=== PATIENT | male | born 1950 | race Caucasian/White ===

== ENCOUNTER 2016-11-13 01:20 | Emergency (ER) | payer MEDICARE, BC ==
[~2016-11-13] VITALS: Ht 180.3 cm; Wt 79.4 kg
[~2016-11-13 01:20] MED LIST: ACID1TAB4 PO; Acetaminophen PO; BICA50TA6 PO; BISA10SU12 RC; BUDE10.22 INH; CALC-860 PO; CYAN50008 PO; DIVA500T7 PO; DUTA0.5C15 PO; Docusate Sodium PO; FURO-152 PO; MAGN400O6 PO; MAGN400T6 PO; MENT71OI TOP; MULT1TAB11 PO; OXYC40TA50 PO; PANT40TA2 PO; PROT946L PO; RIVA15TA PO; RIVA20TA PO; Zolpidem Tartrate PO
[2016-11-13] MEDS ORDERED: IV NORMAL SALINE 1000 ML BAG IV ONE (01:30)
[2016-11-13] MEDS ORDERED: ONDANSETRON 4 MG/2 ML VIAL IV ONE (01:30)
[2016-11-13] MEDS ORDERED: FAMOTIDINE. 20 MG/2 ML VIAL IV ONE ×2 (01:30→01:50)
--- NOTE | 2016-11-13 01:35 | NUR ---
Pt biba from home for c/o severe abd pain and N/V for three days getting progressively worse. Pt seen by Dr. Carrington, awaiting further orders.
[2016-11-13] MEDS ORDERED: ONDANSETRON 4 MG/2 ML VIAL ONE ×2 (01:49→05:54)
[2016-11-13 01:54] LABS: BASOPHILS % (AUTO) 0.5 % (0.0-2.0); EOSINOPHILS # (AUTO) 0.1 K/uL (0.0-0.7); HEMATOCRIT 49.4 % (40-50); HEMOGLOBIN 16.2 G/DL (14.0-18.0); LYMPHOCYTES # (AUTO) 0.9 K/UL (0.8-4.8); LYMPHOCYTES % (AUTO) 12.3 % (20.5-51.5); MEAN CORPUSCULAR HEMOGLOBIN 30.6 UUG (27.0-31.0); MEAN CORPUSCULAR HGB CONC 33 g/dL (32.0-37.0); MEAN CORPUSCULAR VOLUME 93.2 FL (82.0-92.0); MONOCYTES # (AUTO) 0.5 K/UL (0.1-1.30); MONOCYTES % (AUTO) 6.7 % (0.0-11.0); NEUTROPHILS # (AUTO) 5.5 K/UL (1.8-8.9); NEUTROPHILS % (AUTO) 79.5 % (38.5-71.5); PLATELET COUNT (AUTO) 165 K/UL (150-450)
--- NOTE | 2016-11-13 02:00 | NUR ---
R. Subclavian port accessed with a 22g 3/4" arias needle. Pt medicated for discomfort and N/V, will monitor for effects of medication. Fluid bolus infusing freely to gravity. Pt resting in position of comfort for self.
[2016-11-13 02:05] LABS: CREATININE 0.9 mg/dL (0.6-1.3); POTASSIUM 3.2 mmol/L (3.5-5.1)
[2016-11-13 02:11] LABS: BILIRUBIN,DIRECT 0.1 mg/dL (0.0-0.2); BILIRUBIN,TOTAL 0.5 mg/dL (0.2-1.0); TOTAL PROTEIN, SERUM 7.8 g/dL (6.4-8.2)
--- NOTE | 2016-11-13 02:42 | NUR ---
Pt continues to c/o severe nausea and pain and is requesting more medication. Dr. Carrington notified. Awaiting further orders
[2016-11-13] MEDS ORDERED: METOCLOPRAMIDE HCL 10 MG/2 ML VIAL IV ONE (02:45)
[2016-11-13] MEDS ORDERED: MORPHINE SULFATE 2 MG/1 ML DISP.SYRIN IV ONE (02:45)
[2016-11-13] MEDS ORDERED: ABIR500T PO (02:46)
[2016-11-13] MEDS ORDERED: FLUO-119 PO (02:46)
[2016-11-13] MEDS ORDERED: PANT40TA4 PO (02:46)
[2016-11-13] MEDS ORDERED: TAMS0.4C34 PO (02:46)
[2016-11-13] MEDS ORDERED: ALPR1TAB7 PO (02:46)
[2016-11-13] MEDS ORDERED: GABA-534 PO (02:46)
[2016-11-13] MEDS ORDERED: DIVA500T7 PO (02:46)
[2016-11-13] MEDS ORDERED: PRED2.5T PO (02:46)
[2016-11-13] MEDS ORDERED: PROBIOTIC (02:46)
[2016-11-13] MEDS ORDERED: OXYC30TA2 PO (02:46)
--- NOTE | 2016-11-13 02:56 | NUR ---
Pt medicated for pain and nausea, will monitor for effects of medication. Fluid bolus infusing freely to gravity. Pt repositioned for comfort.
[2016-11-13] MEDS ORDERED: MORPHINE SULFATE 4 MG/1 ML DISP.SYRIN ONE (02:59)
[2016-11-13] MEDS ORDERED: METOCLOPRAMIDE HCL 10 MG/2 ML VIAL ONE (02:59)
[2016-11-13] MEDS ORDERED: CYAN10009 PO (03:02)
[2016-11-13] MEDS ORDERED: L. A1CAP5 PO (03:02)
[2016-11-13] MEDS ORDERED: CALC-903 PO (03:02)
[2016-11-13] MEDS ORDERED: IOHEXOL 300MG/ML 100 ML INFUS..BTL ONE (03:15)
[2016-11-13] MEDS ORDERED: NORMAL SALINE FLUSH 10 ML DISP.SYRIN ONE (03:15)
[2016-11-13] MEDS ORDERED: IV NORMAL SALINE 250 ML IV ONE (03:15)
--- NOTE | 2016-11-13 03:20 | NUR ---
Pt to [place] via [facility]
--- NOTE | 2016-11-13 03:45 | NUR ---
Pt returned from [place] via [facility]. Pt sts nausea has improved but no change in level of burning pain to the abd. Dr. Carrington notified, awaiting further orders.
[2016-11-13] MEDS ORDERED: LIDOCAINE VISCUS 2% 15 ML UDC MM ONE (04:45)
[2016-11-13] MEDS ORDERED: MAG HYDROX/AL HYDROX/SIMETH 30 ML LIQUID UDC PO ONE (04:45)
[2016-11-13] MEDS ORDERED: POTASSIUM CHLORIDE 20 MEQ TAB.PRT.SR PO ONE (05:00)
--- NOTE | 2016-11-13 05:07 | NUR ---
Pt medicated for "burning" abd pain, will monitor for effects of medication. Pt resting in position of comfort for self. Family remains at bedside
[2016-11-13] MEDS ORDERED: MAG HYDROX/AL HYDROX/SIMETH 30 ML LIQUID UDC ONE (05:12)
[2016-11-13] MEDS ORDERED: POTASSIUM CHLORIDE 20 MEQ TAB.PRT.SR ONE (05:12)
[2016-11-13] MEDS ORDERED: LIDOCAINE VISCUS 2% 15 ML UDC ONE (05:12)
--- NOTE | 2016-11-13 05:35 | NUR ---
Pt requesting one more dose of medication for discomfort and nausea prior to discharge
[2016-11-13] MEDS ORDERED: HYDROCODONE/APAP 5-325MG TABLET PO ONE (05:45)
[2016-11-13] MEDS ORDERED: ONDANSETRON IV *ER 4 MG/2 ML VIAL IV ONE (05:45)
[2016-11-13] MEDS ORDERED: HYDROCODONE/APAP 5-325MG TABLET ONE (05:54)
--- NOTE | 2016-11-13 06:10 | NUR ---
Pt sts " Im finally starting to feel better". Pt stable for discharge per Dr. Carrington. Right subclavian port access discontinued, drsg applied. No problems noted to site. Unable to discharge at this time due to lack of ride home. is at bedside however took sleep aid medication last night and appears "groggy". is unable to keep her eyes open, keeps falling asleep and does not appear to be awake and alert enough to drive the pt and herself home. Pt unable to drive due to receiving narcotics earlier. Pt to be discharged when his is alert enough to drive them home or is able to arrange another ride. Dr. Carrington notified.
--- NOTE | 2016-11-13 07:00 | NUR ---
Pt's awake and alert, no longer "groggy". Pt stable for discharge per Dr. Carrington. Pt given [facility]. Pt verbalized understanding of dc instructions. Pt and ambulated out of ER with steady gait.
[2016-11-13 07:17] VITALS: BP 147/94
== END 2016-11-13 07:00 | disposition home or self-care (01) ==
LOC: ER 01:21
DX: E87.6 Hypokalemia (principal); R10.10 Upper abdominal pain, unspecified; R11.2 Nausea with vomiting, unspecified; K80.20 Calculus of gallbladder without cholecystitis without obstruction
CPT/HCPCS: 36415; 70030-TC; 83690; 85025; 85730; 93005; A4663; J2270; J2405; J2765; J3490; J7030; J7050; Q9967

== ENCOUNTER 2023-05-11 11:15 | Inpatient (IN) | payer MEDICARE, BC ==
[~2023-05-11] VITALS: Ht 177.8 cm; Wt 54.4 kg
[~2023-05-11 11:15] MED LIST changes: +ABIR500T PO; -ACID1TAB4 PO; +ALPR1TAB7 PO; -BICA50TA6 PO; -CALC-860 PO; +CALC-903 PO; +CYAN-51 PO; -CYAN50008 PO; +DILT-2 PO; +DIVA-78 PO; -DIVA500T7 PO; -DUTA0.5C15 PO; +DUTA0.5C37 PO; +FLUO10CA29 PO; -FURO-152 PO; +GABA-534 PO; +L. A1CAP5 PO; -MAGN400O6 PO; -MAGN400T6 PO; -OXYC40TA50 PO; -PANT40TA2 PO; +PANT40TA49 PO; +PRED2.5T PO; +PROBIOTIC; -PROT946L PO; -RIVA15TA PO; -RIVA20TA PO; +TAMS0.4C34 PO
[2023-05-11 12:22] LABS: AMMONIA 18 umol/L (11-32); CALCIUM 8.5 mg/dL (8.5-10.1); CARBON DIOXIDE 30 mmol/L (21-32); CHLORIDE 102 mmol/L (98-107); CREATININE 0.6 mg/dL (0.6-1.3); GLUCOSE 122 mg/dL (74-106); SODIUM SERUM 138 mmol/L (136-145); UREA NITROGEN, BLOOD 7 mg/dL (7-18)
[2023-05-11 12:26] LABS: *BLOOD, URINE 2+ (NEGATIVE); *CLARITY,URINE CLEAR (CLEAR); *COLOR,URINE YELLOW (YELLOW); *KETONES,URINE 2+ (NEGATIVE); *PROTEIN,URINE TRACE (NEGATIVE); *UROBILINOGEN,URINE 0.2 E.U./dl (NORMAL); LEUKOCYTE ESTERASE ,URINE NEGATIVE (NEGATIVE); NITRITE, URINE NEGATIVE (NEGATIVE); UGLUCOSE NEGATIVE (NEGATIVE)
[2023-05-11 12:27] LABS: BASOPHILS % (AUTO) 0.2 % (0.0-2.0); DIFFERENTIAL COMMENT 0; EOSINOPHILS % (AUTO) 0.2 % (0.0-7.0); HEMATOCRIT 23.9 % (36.7-47.1); LYMPHOCYTES # (AUTO) 0.6 K/uL (0.8-4.8); LYMPHOCYTES % (AUTO) 15.6 % (20.5-51.5); MEAN CORPUSCULAR HEMOGLOBIN 35.4 uug (23.8-33.4); MEAN CORPUSCULAR HGB CONC 33 g/dL (32.5-36.3); MEAN CORPUSCULAR VOLUME 106.5 fL (73.0-96.2); MONOCYTES # (AUTO) 0.2 K/uL (0.1-1.30); MONOCYTES % (AUTO) 6.4 % (0.0-11.0); NEUTROPHILS # (AUTO) 2.8 K/uL (1.8-8.9); NEUTROPHILS % (AUTO) 77.6 % (38.5-71.5); PLATELET COUNT (AUTO) 205 K/uL (152-348); RED CELL DISTRIBUTION WIDTH 15.5 % (12.1-16.2); WHITE BLOOD COUNT (AUTO) 3.7 K/uL (3.6-10.2)
[2023-05-11 12:29] LABS: RED BLOOD CELL COUNT(AUTO) 2.25 MIL/uL (4.06-5.63)
[2023-05-11 12:30] LABS: ETHANOL < 3 MG/DL (0-10)
[2023-05-11 12:36] LABS: *BILIRUBIN,URIN 1+ (NEGATIVE)
[2023-05-11 12:36] LABS: ALANINE AMINOTRANSFERASE 10 U/L (16-63); ALBUMIN 2.5 g/dL (3.4-5.0); ALKALINE PHOSPHATASE 90 U/L (50-136); ASPARTATE AMINOTRANSFERASE 35 U/L (15-37); BILIRUBIN,TOTAL 0.3 mg/dL (0.2-1.0); TOTAL PROTEIN, SERUM 7.5 g/dL (6.4-8.2)
[2023-05-11 12:40] LABS: ACETAMINOPHEN < 2.0 ug/mL (10-30); BILIRUBIN,DIRECT < 0.1 mg/dL (0.0-0.2)
[2023-05-11 12:58] LABS: *AMPHETAMINE, URINE NEGATIVE (NEGATIVE); *BARBITURATE, URINE NEGATIVE (NEGATIVE); *BENZODIAZEPINE, URINE POSITIVE (NEGATIVE); *CANNABINOID, URINE NEGATIVE (NEGATIVE); *COCCAINE, URINE NEGATIVE (NEGATIVE); *OPIATE, URINE POSITIVE (NEGATIVE); *PHENCYCLIDINE SCREEN,URINE NEGATIVE (NEGATIVE); FENTANYL, URINE NEGATIVE (NEGATIVE)
[2023-05-11 13:07] LABS: THYROID STIMULATING HORMONE 0.663 mIU/mL (0.358-3.740)
[2023-05-11 13:16] LABS: BACTERIA,URINE FEW /HPF (NONE SEEN); RBC,URINE 80-100 /HPF (0-3); SQUAMOUS EPITHELIAL CELL,UR FEW /HPF (NONE SEEN); WBC,URINE NONE SEEN /HPF (0-3)
[2023-05-11] MEDS ORDERED: REMEDY ESSENTIAL ZINC PASTE 113 GM TP PRN (19:45)
[2023-05-11] MEDS ORDERED: MAGNESIUM HYDROXIDE 30 ML LIQUID UDC PO PRN (19:45)
[2023-05-11] MEDS ORDERED: ONDANSETRON 4 MG/2 ML VIAL IV PRN (19:45)
[2023-05-11 20:00] VITALS: BP 129/78; TEMP 98.5; O2SAT 93
[2023-05-11] MEDS: DIVALPROEX 500 MG TABLET.DR PO SCH (21:39)
[2023-05-11] MEDS: predniSONE 5 MG TABLET PO SCH (21:41)
[2023-05-11] MEDS: TAMSULOSIN HCL 0.4 MG CAP.SR.24H PO SCH (21:41)
[2023-05-11] MEDS: IV NS 1000 ML 1,000 ML IV PRN (21:42)
[2023-05-11] MEDS: ENOXAPARIN SODIUM 40 MG/0.4 ML DISP.SYRIN SQ SCH (21:42)
[2023-05-11] MEDS: ACETAMINOPHEN 325 MG TABLET PO PRN (22:51)
[2023-05-12] VITALS (16 sets, daily range): BP systolic 91–111; BP diastolic 58–73; TEMP 97.1–99.3; O2SAT 88–99
[2023-05-12] MEDS: FLUOXETINE HCL 10 MG CAPSULE PO SCH (06:00)
[2023-05-12 07:16] LABS: CALCIUM 8.1 mg/dL (8.5-10.1); CARBON DIOXIDE 29 mmol/L (21-32); CHLORIDE 104 mmol/L (98-107); CHOLESTEROL 101 mg/dL (<200); CREATININE 0.6 mg/dL (0.6-1.3); GLUCOSE 113 mg/dL (74-106); HDL CHOLESTEROL 37 mg/dL (40-60); MAGNESIUM 1.8 mg/dL (1.8-2.4); POTASSIUM 3.9 mmol/L (3.5-5.1); SODIUM SERUM 140 mmol/L (136-145); TRIGLYCERIDES 73 MG/DL (30-150); UREA NITROGEN, BLOOD 10 mg/dL (7-18)
[2023-05-12 07:41] LABS: BASOPHILS % (AUTO) 0.1 % (0.0-2.0); HEMOGLOBIN 7.8 g/dL (12.5-16.3); LYMPHOCYTES % (AUTO) 12.4 % (20.5-51.5); MEAN CORPUSCULAR HEMOGLOBIN 35.9 uug (23.8-33.4); MEAN CORPUSCULAR HGB CONC 34 g/dL (32.5-36.3); MEAN CORPUSCULAR VOLUME 105.5 fL (73.0-96.2); MONOCYTES # (AUTO) 0.4 K/uL (0.1-1.30); MONOCYTES % (AUTO) 5.4 % (0.0-11.0); NEUTROPHILS # (AUTO) 6.6 K/uL (1.8-8.9); NEUTROPHILS % (AUTO) 82.1 % (38.5-71.5); PLATELET COUNT (AUTO) 197 K/uL (152-348); RED CELL DISTRIBUTION WIDTH 15.2 % (12.1-16.2)
[2023-05-12 07:43] LABS: RED BLOOD CELL COUNT(AUTO) 2.18 MIL/uL (4.06-5.63)
[2023-05-12 07:44] LABS: DIFFERENTIAL COMMENT 1
[2023-05-12] MEDS: CALCIUM CARBONATE 600 MG TABLET PO SCH (09:40)
[2023-05-12] MEDS: DILTIAZEM HCL CD 120 MG CAP.SR.24H PO SCH (09:40)
[2023-05-12] MEDS: DUTASTERIDE 0.5 MG CAPSULE PO SCH (09:41)
[2023-05-12] MEDS: DULOXETINE 30 MG CAPSULE.DR PO SCH (09:41)
[2023-05-12] MEDS: ALPRAZOLAM 0.5 MG TABLET PO SCH ×2 (09:41→22:01)
[2023-05-12] MEDS: NEOMY/BACITRAC/POLYMI OINT 28.35 GM TUBE TOP SCH (13:13)
[2023-05-12] MEDS: NALOXONE HCL 0.4 MG/ML AMPUL IV ONE (14:51)
[2023-05-12 14:55] LABS: ABG BASE EXCESS -3.8 mmol/L (-2.0-2.0); ABG HCO3 26.3 mmol/L (22.0-26.0); ABG PCO2 83.5 mmHg (35.0-48.0); ABG PH 7.116 (7.340-7.440); ABG PO2 104.9 mmHg (75.0-100.0); ABG SITE RIGHT RADIAL; ABG TOTAL HEMOGLOBIN 9.1 G/dL (14.0-18.0); AaDO2 95.5 mmHg; COHb 0.4 % (0.0-3.9); MetHb 0.3 % (0.0-1.5); O2Hb 94.4 % (94.0-97.0)
[2023-05-12] MEDS: VANCOMYCIN IV 1,250 MG in IV DEXTROSE 5% 250 ML IV SCH (16:52)
[2023-05-12] MEDS ORDERED: NALOXONE NASAL SPRAY 4 MG SPRAY NS PRN (17:30)
[2023-05-12 17:59] LABS: ABG BASE EXCESS 2.8 mmol/L (-2.0-2.0); ABG HCO3 30.9 mmol/L (22.0-26.0); ABG PCO2 71.7 mmHg (35.0-48.0); ABG PH 7.253 (7.340-7.440); ABG PO2 208.9 mmHg (75.0-100.0); ABG SITE RIGHT RADIAL; ABG TOTAL HEMOGLOBIN 8.5 G/dL (14.0-18.0); AaDO2 99.2 mmHg; COHb 0.4 % (0.0-3.9); MetHb 0.2 % (0.0-1.5); O2Hb 99.3 % (94.0-97.0)
[2023-05-12] MEDS: NALOXONE HCL 0.4 MG/ML AMPUL IV PRN (18:48)
[2023-05-12 19:51] LABS: ABG BASE EXCESS 2.5 mmol/L (-2.0-2.0); ABG HCO3 28.1 mmol/L (22.0-26.0); ABG PCO2 48.9 mmHg (35.0-48.0); ABG PH 7.377 (7.340-7.440); ABG PO2 111.2 mmHg (75.0-100.0); ABG SITE LEFT RADIAL; ABG TOTAL HEMOGLOBIN 8.2 G/dL (14.0-18.0); AaDO2 97.9 mmHg; COHb 0.3 % (0.0-3.9); MetHb 0.1 % (0.0-1.5); O2Hb 97.8 % (94.0-97.0)
[2023-05-12] MEDS ORDERED: CEFEPIME HCL 1 G VIAL ONE (22:24)
[2023-05-12] MEDS: CEFEPIME HCL 1 G in IV DEXTROSE 5% 50 ML IV SCH (22:38)
[2023-05-13] VITALS (38 sets, daily range): BP systolic 97–134; BP diastolic 56–82; TEMP 98–98.5; O2SAT 84–100
[2023-05-13] MEDS ORDERED: CEFEPIME HCL 1 G VIAL ONE (04:36)
[2023-05-13 05:01] LABS: MONOCYTES # (AUTO) 0.3 K/uL (0.1-1.30)
[2023-05-13 05:03] LABS: BASOPHILS % (AUTO) 0.2 % (0.0-2.0); EOSINOPHILS % (AUTO) 0.1 % (0.0-7.0); HEMATOCRIT 21.4 % (36.7-47.1); LYMPHOCYTES # (AUTO) 0.5 K/uL (0.8-4.8); MEAN CORPUSCULAR HGB CONC 34 g/dL (32.5-36.3); MEAN CORPUSCULAR VOLUME 106.1 fL (73.0-96.2); MONOCYTES % (AUTO) 4.5 % (0.0-11.0); NEUTROPHILS # (AUTO) 6.8 K/uL (1.8-8.9); NEUTROPHILS % (AUTO) 88.2 % (38.5-71.5); PLATELET COUNT (AUTO) 198 K/uL (152-348); RED CELL DISTRIBUTION WIDTH 15.6 % (12.1-16.2); WHITE BLOOD COUNT (AUTO) 7.7 K/uL (3.6-10.2)
[2023-05-13 05:30] LABS: CALCIUM 8.2 mg/dL (8.5-10.1); CARBON DIOXIDE 30 mmol/L (21-32); CHLORIDE 105 mmol/L (98-107); CREATININE 0.4 mg/dL (0.6-1.3); GLUCOSE 115 mg/dL (74-106); MAGNESIUM 1.6 mg/dL (1.8-2.4); PHOSPHOROUS 2.4 mg/dL (2.5-4.9); POTASSIUM 4.1 mmol/L (3.5-5.1); SODIUM SERUM 140 mmol/L (136-145); UREA NITROGEN, BLOOD 15 mg/dL (7-18)
[2023-05-13 05:32] LABS: DIFFERENTIAL COMMENT 1; HEMOGLOBIN 7.3 g/dL (12.5-16.3); RED BLOOD CELL COUNT(AUTO) 2.02 MIL/uL (4.06-5.63)
[2023-05-13] MEDS: methylPREDNISolone SOD SUCC 40 MG/ML VIAL IV SCH (09:02)
[2023-05-13 09:10] LABS: ABG BASE EXCESS 4.4 mmol/L (-2.0-2.0); ABG HCO3 28.4 mmol/L (22.0-26.0); ABG PCO2 40.1 mmHg (35.0-48.0); ABG PH 7.468 (7.340-7.440); ABG PO2 64.8 mmHg (75.0-100.0); ABG SITE RIGHT BRACHIAL; ABG TOTAL HEMOGLOBIN 11.2 G/dL (14.0-18.0); AaDO2 93.8 mmHg; COHb 0.1 % (0.0-3.9); MetHb 0.3 % (0.0-1.5); O2Hb 92.3 % (94.0-97.0)
[2023-05-13] MEDS ORDERED: VANCOMYCIN IV 1,000 MG in IV DEXTROSE 5% 250 ML IV SCH (11:15)
[2023-05-13] MEDS: VANCOMYCIN IV 1,000 MG in IV DEXTROSE 5% 250 ML IV SCH (11:30)
[2023-05-13] MEDS ORDERED: VANCOMYCIN IV 1,250 MG in IV DEXTROSE 5% 250 ML IV SCH (12:00)
[2023-05-13] MEDS: MAGNESIUM OXIDE 400 MG TABLET PO ONE (13:09)
[2023-05-13] MEDS: LEVALBUTEROL HCL NEB 0.63 MG/3 ML NEBU NEB SCH (13:30)
[2023-05-13] MEDS: IPRATROPIUM BROMIDE 0.5 MG/2.5 ML NEBU NEB SCH (13:30)
[2023-05-13] MEDS: CEFEPIME HCL 1 G in IV DEXTROSE 5% 50 ML IV SCH (14:37)
[2023-05-13] MEDS: NEPRO (VANILLA) 237 ML CAN PO SCH (16:38)
[2023-05-13] MEDS: ARGININE/GLUTAMINE/CALCIUM BMB 1 EACH POWD.PACK PO SCH (16:38)
[2023-05-13] MEDS: NEUTRA PHOS PACKET PO ONE (16:50)
[2023-05-14] VITALS (58 sets, daily range): BP systolic 108–139; BP diastolic 62–96; TEMP 97.9–99.1; O2SAT 80–100
[2023-05-14 05:54] LABS: CALCIUM 8.3 mg/dL (8.5-10.1); CARBON DIOXIDE 31 mmol/L (21-32); CHLORIDE 102 mmol/L (98-107); CREATININE 0.5 mg/dL (0.6-1.3); GLUCOSE 126 mg/dL (74-106); MAGNESIUM 1.6 mg/dL (1.8-2.4); PHOSPHOROUS 2.4 mg/dL (2.5-4.9); POTASSIUM 3.7 mmol/L (3.5-5.1); SODIUM SERUM 138 mmol/L (136-145); UREA NITROGEN, BLOOD 11 mg/dL (7-18)
[2023-05-14 06:09] LABS: DIFFERENTIAL COMMENT 0; HEMATOCRIT 21.1 % (36.7-47.1); LYMPHOCYTES # (AUTO) 0.6 K/uL (0.8-4.8); LYMPHOCYTES % (AUTO) 9.4 % (20.5-51.5); MEAN CORPUSCULAR HEMOGLOBIN 35.4 uug (23.8-33.4); MEAN CORPUSCULAR HGB CONC 34 g/dL (32.5-36.3); MEAN CORPUSCULAR VOLUME 104.4 fL (73.0-96.2); MONOCYTES # (AUTO) 0.2 K/uL (0.1-1.30); MONOCYTES % (AUTO) 2.8 % (0.0-11.0); NEUTROPHILS # (AUTO) 5.6 K/uL (1.8-8.9); NEUTROPHILS % (AUTO) 87.8 % (38.5-71.5); PLATELET COUNT (AUTO) 182 K/uL (152-348); RED CELL DISTRIBUTION WIDTH 15.2 % (12.1-16.2); WHITE BLOOD COUNT (AUTO) 6.3 K/uL (3.6-10.2)
[2023-05-14 06:18] LABS: ABG BASE EXCESS 4.6 mmol/L (-2.0-2.0); ABG HCO3 27.8 mmol/L (22.0-26.0); ABG PCO2 35.3 mmHg (35.0-48.0); ABG PH 7.514 (7.340-7.440); ABG SITE LEFT BRACHIAL; ABG TOTAL HEMOGLOBIN 7.6 G/dL (14.0-18.0); AaDO2 93.1 mmHg; COHb 0.4 % (0.0-3.9); MetHb 0.1 % (0.0-1.5); O2Hb 90.2 % (94.0-97.0)
[2023-05-14 06:25] LABS: HEMOGLOBIN 7.2 g/dL (12.5-16.3); RED BLOOD CELL COUNT(AUTO) 2.02 MIL/uL (4.06-5.63)
[2023-05-14] MEDS: POTASSIUM PHOSPHATE MM 15 MMOL in IV NORMAL SALINE 250 ML IV ONE (08:30)
[2023-05-14] MEDS: MAGNESIUM SULFATE/D5W 100 ML IV SCH (08:46)
[2023-05-14] MEDS ORDERED: PIPERACILLIN SODIUM/TAZOBACTAM 3.375 G in IV DEXTROSE 5% 50 ML IV SCH (14:00)
[2023-05-14] MEDS: PIPERACILLIN SODIUM/TAZOBACTAM 3.375 G in IV DEXTROSE 5% 100 ML IV SCH (15:37)
[2023-05-15] VITALS (56 sets, daily range): BP systolic 72–138; BP diastolic 51–96; TEMP 98–99.3; O2SAT 61–100
[2023-05-15 05:05] LABS: HEMATOCRIT 22.8 % (36.7-47.1); HEMOGLOBIN 7.7 g/dL (12.5-16.3); LYMPHOCYTES # (AUTO) 0.4 K/uL (0.8-4.8); LYMPHOCYTES % (AUTO) 8.7 % (20.5-51.5); MEAN CORPUSCULAR HEMOGLOBIN 35.2 uug (23.8-33.4); MEAN CORPUSCULAR HGB CONC 34 g/dL (32.5-36.3); MEAN CORPUSCULAR VOLUME 103.9 fL (73.0-96.2); MONOCYTES # (AUTO) 0.1 K/uL (0.1-1.30); MONOCYTES % (AUTO) 2.3 % (0.0-11.0); NEUTROPHILS # (AUTO) 4.2 K/uL (1.8-8.9); PLATELET COUNT (AUTO) 187 K/uL (152-348); RED CELL DISTRIBUTION WIDTH 15.3 % (12.1-16.2); WHITE BLOOD COUNT (AUTO) 4.7 K/uL (3.6-10.2)
[2023-05-15 05:13] LABS: DIFFERENTIAL COMMENT 1; RED BLOOD CELL COUNT(AUTO) 2.19 MIL/uL (4.06-5.63)
[2023-05-15 05:50] LABS: ABG BASE EXCESS 7.1 mmol/L (-2.0-2.0); ABG HCO3 31.1 mmol/L (22.0-26.0); ABG PCO2 41.5 mmHg (35.0-48.0); ABG PH 7.493 (7.340-7.440); ABG PO2 103.9 mmHg (75.0-100.0); ABG SITE LEFT RADIAL; AaDO2 98.1 mmHg
[2023-05-15 05:58] LABS: MAGNESIUM 2.1 mg/dL (1.8-2.4); PHOSPHOROUS 3.1 mg/dL (2.5-4.9)
[2023-05-15 06:18] LABS: CALCIUM 8.1 mg/dL (8.5-10.1); CREATININE 0.6 mg/dL (0.6-1.3); POTASSIUM 3.6 mmol/L (3.5-5.1)
[2023-05-15 08:57] LABS: ABG PO2 62.8 mmHg (75.0-100.0); ABG SITE RIGHT RADIAL
[2023-05-15] MEDS: VALPROIC ACID 250 MG/5 ML LIQUID UDC NG SCH (11:41)
[2023-05-15] MEDS ORDERED: DILTIAZEM HCL 30 MG TABLET PO SCH (12:00)
[2023-05-15] MEDS: BUMETANIDE INJ 4 MG in IV DEXTROSE 5% 24 ML IV ONE (12:07)
[2023-05-15] MEDS: DILTIAZEM HCL 30 MG TABLET NG SCH (12:32)
[2023-05-15] MEDS: IV NS 1000 ML 1,000 ML IV PRN (12:44)
[2023-05-15] MEDS: PIPERACILLIN SODIUM/TAZOBACTAM 3.375 G in IV DEXTROSE 5% 50 ML IV SCH (13:10)
[2023-05-15] MEDS: JEVITY 1.2 1000 ML LIQUID GT PRN (14:25)
[2023-05-15] MEDS: DILTIAZEM HCL 30 MG TABLET PO SCH (15:53)
[2023-05-15] MEDS ORDERED: SUCCINYLCHOLINE CHLORIDE 200 MG/10 ML VIAL ONE (20:00)
[2023-05-15] MEDS ORDERED: ETOMIDATE 20 MG/10 ML VIAL ONE (20:00)
[2023-05-15 20:02] LABS: ABG BASE EXCESS 12.2 mmol/L (-2.0-2.0); ABG HCO3 32.7 mmol/L (22.0-26.0); ABG PCO2 27.9 mmHg (35.0-48.0); ABG PH 7.687 (7.340-7.440); ABG TOTAL HEMOGLOBIN 9.9 G/dL (14.0-18.0); AaDO2 67.3 mmHg; COHb 0.2 % (0.0-3.9); MetHb 0.3 % (0.0-1.5); O2Hb 58.2 % (94.0-97.0)
[2023-05-15] MEDS: AMIODARONE HCL IV 150 MG in IV DEXTROSE 5% 100 ML IV ONE (20:15)
[2023-05-15] MEDS ORDERED: PROPOFOL 100 ML ONE (20:18)
[2023-05-15] MEDS: AMIODARONE HCL 150 MG/3 ML VIAL IV ONE (20:24)
[2023-05-15] MEDS: PHENYLEPHRINE 10 MG/1 ML VIAL ONE ×2 (20:25→20:26)
[2023-05-15 21:20] LABS: CARBON DIOXIDE 35 mmol/L (21-32); CHLORIDE 96 mmol/L (98-107); CREATININE 0.9 mg/dL (0.6-1.3); GLUCOSE 197 mg/dL (74-106); POTASSIUM 3.4 mmol/L (3.5-5.1); SODIUM SERUM 137 mmol/L (136-145); UREA NITROGEN, BLOOD 30 mg/dL (7-18)
[2023-05-15 21:21] LABS: CALCIUM 8.5 mg/dL (8.5-10.1)
[2023-05-15] MEDS ORDERED: IOHEXOL 350 100 ML INFUS..BTL ONE ×2 (22:10→23:48)
[2023-05-15] MEDS ORDERED: IV NORMAL SALINE 250 ML IV ONE ×2 (22:10→23:48)
[2023-05-15] MEDS ORDERED: SWABABLE VALVE TRANSFER SET EA MC ONE ×2 (22:10→23:48)
[2023-05-16] VITALS (87 sets, daily range): BP systolic 75–122; BP diastolic 54–91; TEMP 97.4–100.2; O2SAT 73–100
[2023-05-16 00:04] LABS: ABG BASE EXCESS 8.9 mmol/L (-2.0-2.0); ABG HCO3 31.9 mmol/L (22.0-26.0); ABG PCO2 37.5 mmHg (35.0-48.0); ABG PH 7.548 (7.340-7.440); ABG PO2 68.7 mmHg (75.0-100.0); ABG SITE RIGHT RADIAL; ABG TOTAL HEMOGLOBIN 9.3 G/dL (14.0-18.0); AaDO2 95.7 mmHg; COHb 0.3 % (0.0-3.9); MetHb 0.1 % (0.0-1.5); O2Hb 93.2 % (94.0-97.0); VT, ABG 500 mL
[2023-05-16] MEDS ORDERED: AMIODARONE HCL 150 MG/3 ML VIAL IV ONE (02:32)
[2023-05-16 05:20] LABS: BASOPHILS % (AUTO) 0.2 % (0.0-2.0); HEMATOCRIT 24.4 % (36.7-47.1); HEMOGLOBIN 8.5 g/dL (12.5-16.3); LYMPHOCYTES # (AUTO) 0.6 K/uL (0.8-4.8); LYMPHOCYTES % (AUTO) 7.5 % (20.5-51.5); MEAN CORPUSCULAR HEMOGLOBIN 35.5 uug (23.8-33.4); MEAN CORPUSCULAR HGB CONC 35 g/dL (32.5-36.3); MEAN CORPUSCULAR VOLUME 101.7 fL (73.0-96.2); MONOCYTES # (AUTO) 0.4 K/uL (0.1-1.30); MONOCYTES % (AUTO) 4.6 % (0.0-11.0); NEUTROPHILS # (AUTO) 7.3 K/uL (1.8-8.9); NEUTROPHILS % (AUTO) 87.7 % (38.5-71.5); PLATELET COUNT (AUTO) 254 K/uL (152-348); RED CELL DISTRIBUTION WIDTH 15.4 % (12.1-16.2); WHITE BLOOD COUNT (AUTO) 8.3 K/uL (3.6-10.2)
[2023-05-16 05:42] LABS: THYROID STIMULATING HORMONE 0.378 mIU/mL (0.358-3.740)
[2023-05-16 05:43] LABS: ALANINE AMINOTRANSFERASE 17 U/L (16-63); ALBUMIN 2.2 g/dL (3.4-5.0); ALKALINE PHOSPHATASE 67 U/L (50-136); ASPARTATE AMINOTRANSFERASE 17 U/L (15-37); BILIRUBIN,TOTAL 0.3 mg/dL (0.2-1.0); CALCIUM 8.7 mg/dL (8.5-10.1); CARBON DIOXIDE 36 mmol/L (21-32); CHLORIDE 97 mmol/L (98-107); CREATININE 0.8 mg/dL (0.6-1.3); GLUCOSE 136 mg/dL (74-106); MAGNESIUM 2.1 mg/dL (1.8-2.4); NT-PRO BNP 5753 pg/mL (0-125); PHOSPHOROUS 3.9 mg/dL (2.5-4.9); POTASSIUM 3.1 mmol/L (3.5-5.1); SODIUM SERUM 137 mmol/L (136-145); TOTAL PROTEIN, SERUM 7.5 g/dL (6.4-8.2); UREA NITROGEN, BLOOD 31 mg/dL (7-18)
[2023-05-16 05:46] LABS: DIFFERENTIAL COMMENT 1
[2023-05-16] MEDS: AMIODARONE HCL IV 450 MG in IV DEXTROSE 5% 250 ML IV PRN (08:17)
[2023-05-16] MEDS: FAMOTIDINE. 20 MG/2 ML VIAL IV SCH (09:01)
[2023-05-16] MEDS: POTASSIUM CHLORIDE 50 ML IV SCH (09:01)
[2023-05-16] MEDS: DULOXETINE 30 MG CAPSULE.DR PO SCH (09:07)
[2023-05-16] MEDS: PROPOFOL 100 ML IV PRN (11:22)
[2023-05-16] MEDS: PHENYLEPHRINE IV 50 MG in IV NORMAL SALINE 245 ML IV PRN (15:24)
[2023-05-16 15:59] LABS: *BILIRUBIN,URIN NEGATIVE (NEGATIVE); *CLARITY,URINE SLIGHTLY CLOUDY (CLEAR); *COLOR,URINE YELLOW (YELLOW); *KETONES,URINE 1+ (NEGATIVE); *PROTEIN,URINE 1+ (NEGATIVE); *UROBILINOGEN,URINE 0.2 E.U./dl (NORMAL); LEUKOCYTE ESTERASE ,URINE NEGATIVE (NEGATIVE); NITRITE, URINE NEGATIVE (NEGATIVE); PH,URINE 5.5 (5.0-8.0); UGLUCOSE NEGATIVE (NEGATIVE)
[2023-05-16 16:04] LABS: *BLOOD, URINE TRACE (NEGATIVE)
[2023-05-16 16:15] LABS: *CREATININE,URINE 53.2 mg/dL (30-125); *URINE TOTAL PROTEIN RANDOM 50.1 mg/dL (<150/24HR)
[2023-05-16 16:24] LABS: BACTERIA,URINE FEW /HPF (NONE SEEN); RBC,URINE 0-3 /HPF (0-3); SQUAMOUS EPITHELIAL CELL,UR FEW /HPF (NONE SEEN); WBC,URINE NONE SEEN /HPF (0-3)
[2023-05-17] VITALS (95 sets, daily range): BP systolic 83–128; BP diastolic 42–91; TEMP 97–99; O2SAT 90–98
[2023-05-17 07:46] LABS: ABG BASE EXCESS 6.9 mmol/L (-2.0-2.0); ABG HCO3 30.9 mmol/L (22.0-26.0); ABG PCO2 41.8 mmHg (35.0-48.0); ABG PH 7.487 (7.340-7.440); ABG PO2 64.9 mmHg (75.0-100.0); ABG SITE RIGHT RADIAL; ABG TOTAL HEMOGLOBIN 9.2 G/dL (14.0-18.0); AaDO2 94.1 mmHg; COHb 0.3 % (0.0-3.9); MetHb 0.3 % (0.0-1.5); O2Hb 91.3 % (94.0-97.0); VT, ABG 500 mL
[2023-05-17 08:14] LABS: BASOPHILS % (AUTO) 0.1 % (0.0-2.0); HEMATOCRIT 22.9 % (36.7-47.1); LYMPHOCYTES # (AUTO) 0.4 K/uL (0.8-4.8); LYMPHOCYTES % (AUTO) 7.1 % (20.5-51.5); MEAN CORPUSCULAR HEMOGLOBIN 35.9 uug (23.8-33.4); MEAN CORPUSCULAR HGB CONC 35 g/dL (32.5-36.3); MEAN CORPUSCULAR VOLUME 103.2 fL (73.0-96.2); MONOCYTES # (AUTO) 0.1 K/uL (0.1-1.30); MONOCYTES % (AUTO) 2.6 % (0.0-11.0); NEUTROPHILS # (AUTO) 5.1 K/uL (1.8-8.9); NEUTROPHILS % (AUTO) 90.2 % (38.5-71.5); PLATELET COUNT (AUTO) 239 K/uL (152-348); RED CELL DISTRIBUTION WIDTH 15.3 % (12.1-16.2); WHITE BLOOD COUNT (AUTO) 5.6 K/uL (3.6-10.2)
[2023-05-17] MEDS: AMIODARONE HCL 200 MG TABLET PO SCH (08:16)
[2023-05-17 08:23] LABS: ALANINE AMINOTRANSFERASE 19 U/L (16-63); ALBUMIN 2.1 g/dL (3.4-5.0); ALKALINE PHOSPHATASE 60 U/L (50-136); ASPARTATE AMINOTRANSFERASE 6 U/L (15-37); BILIRUBIN,TOTAL 0.2 mg/dL (0.2-1.0); CALCIUM 8.2 mg/dL (8.5-10.1); CARBON DIOXIDE 35 mmol/L (21-32); CHLORIDE 97 mmol/L (98-107); CREATINE KINASE, TOTAL 18 U/L (39-308); CREATININE 0.7 mg/dL (0.6-1.3); GLUCOSE 184 mg/dL (74-106); MAGNESIUM 2.1 mg/dL (1.8-2.4); PHOSPHOROUS 3.4 mg/dL (2.5-4.9); POTASSIUM 3.5 mmol/L (3.5-5.1); SODIUM SERUM 136 mmol/L (136-145); TOTAL PROTEIN, SERUM 7.1 g/dL (6.4-8.2); UREA NITROGEN, BLOOD 24 mg/dL (7-18); VANCOMYCIN,TROUGH 19.9 ug/mL (10.0-20.0)
[2023-05-17 08:29] LABS: DIFFERENTIAL COMMENT 1; RED BLOOD CELL COUNT(AUTO) 2.22 MIL/uL (4.06-5.63)
[2023-05-17] MEDS ORDERED: JEVITY 1.2 1000 ML LIQUID GT PRN (16:00)
[2023-05-17] MEDS: JEVITY 1.2 1000 ML LIQUID GT PRN (16:05)
[2023-05-17] MEDS: PROTEIN SUPPLEMENT (PROSTAT) 30 ML LIQUID GT SCH (16:36)
[2023-05-17] MEDS: VANCOMYCIN IV 1,000 MG in IV DEXTROSE 5% 250 ML IV SCH (17:55)
[2023-05-17] MEDS: FAMOTIDINE 20 MG TABLET NG SCH (20:26)
[2023-05-18] VITALS (70 sets, daily range): BP systolic 80–126; BP diastolic 47–86; TEMP 97.8–98.5; O2SAT 83–100
[2023-05-18 05:09] LABS: BASOPHILS % (AUTO) 0.2 % (0.0-2.0); HEMATOCRIT 21.9 % (36.7-47.1); HEMOGLOBIN 7.5 g/dL (12.5-16.3); LYMPHOCYTES # (AUTO) 0.4 K/uL (0.8-4.8); MEAN CORPUSCULAR HEMOGLOBIN 35.4 uug (23.8-33.4); MEAN CORPUSCULAR HGB CONC 34 g/dL (32.5-36.3); MONOCYTES # (AUTO) 0.2 K/uL (0.1-1.30); MONOCYTES % (AUTO) 3.1 % (0.0-11.0); NEUTROPHILS # (AUTO) 5.8 K/uL (1.8-8.9); NEUTROPHILS % (AUTO) 90.7 % (38.5-71.5); PLATELET COUNT (AUTO) 148 K/uL (152-348); RED CELL DISTRIBUTION WIDTH 15.3 % (12.1-16.2); WHITE BLOOD COUNT (AUTO) 6.3 K/uL (3.6-10.2)
[2023-05-18 05:21] LABS: DIFFERENTIAL COMMENT 1
[2023-05-18 05:26] LABS: CARBON DIOXIDE 35 mmol/L (21-32); CHLORIDE 101 mmol/L (98-107); CREATININE 0.6 mg/dL (0.6-1.3); GLUCOSE 172 mg/dL (74-106); MAGNESIUM 2.1 mg/dL (1.8-2.4); PHOSPHOROUS 2.5 mg/dL (2.5-4.9); POTASSIUM 3.7 mmol/L (3.5-5.1); SODIUM SERUM 138 mmol/L (136-145); UREA NITROGEN, BLOOD 22 mg/dL (7-18)
[2023-05-18 05:31] LABS: ABG BASE EXCESS 11.7 mmol/L (-2.0-2.0); ABG HCO3 36.2 mmol/L (22.0-26.0); ABG PH 7.495 (7.340-7.440); ABG PO2 72.8 mmHg (75.0-100.0); ABG SITE RIGHT RADIAL; ABG TOTAL HEMOGLOBIN 8.1 G/dL (14.0-18.0); AaDO2 95.6 mmHg; COHb 0.6 % (0.0-3.9); MetHb 0.1 % (0.0-1.5); O2Hb 94.2 % (94.0-97.0); VT, ABG 500 mL
[2023-05-18 06:15] LABS: *OCCULT BLOOD STOOL NEGATIVE (NEGATIVE)
[2023-05-18 11:06] LABS: A/G RATIO 0.6 (0.7-1.7); ALBUMIN 2.3 g/dL (2.9-4.4); ALPHA-1-GLOBULIN 0.4 g/dL (0.0-0.4); ALPHA-2-GLOBULIN 0.7 g/dL (0.4-1.0); GAMMA GLOBULIN 1.9 g/dL (0.4-1.8); M-SPIKE Not Observed g/dL (Not Observed)
[2023-05-18] MEDS: ALBUTEROL SULFATE 1.25 MG/3 ML NEBU NEB SCH (13:43)
[2023-05-18] MEDS: PIPERACILLIN SODIUM/TAZOBACTAM 3.375 G in IV DEXTROSE 5% 100 ML IV SCH (15:15)
[2023-05-18] MEDS: methylPREDNISolone SOD SUCC 40 MG/ML VIAL IV SCH (21:10)
[2023-05-18] MEDS: IV NORMAL SALINE 250 ML IV PRN (22:07)
[2023-05-19] VITALS (36 sets, daily range): BP systolic 101–126; BP diastolic 56–87; TEMP 97.8–99.5; O2SAT 94–99
[2023-05-19 06:00] LABS: ABG BASE EXCESS 8.4 mmol/L (-2.0-2.0); ABG HCO3 32.4 mmol/L (22.0-26.0); ABG PCO2 42.8 mmHg (35.0-48.0); ABG PH 7.497 (7.340-7.440); ABG PO2 109.6 mmHg (75.0-100.0); ABG SITE RIGHT RADIAL; ABG TOTAL HEMOGLOBIN 8.6 G/dL (14.0-18.0); AaDO2 98.3 mmHg; COHb 0.3 % (0.0-3.9); MetHb 0.1 % (0.0-1.5); O2Hb 97.9 % (94.0-97.0); VT, ABG 500 mL
[2023-05-19 06:21] LABS: HEMATOCRIT 22.3 % (36.7-47.1); HEMOGLOBIN 7.7 g/dL (12.5-16.3); LYMPHOCYTES # (AUTO) 0.4 K/uL (0.8-4.8); LYMPHOCYTES % (AUTO) 5.2 % (20.5-51.5); MEAN CORPUSCULAR HEMOGLOBIN 36.4 uug (23.8-33.4); MEAN CORPUSCULAR HGB CONC 35 g/dL (32.5-36.3); MEAN CORPUSCULAR VOLUME 105.7 fL (73.0-96.2); MONOCYTES # (AUTO) 0.2 K/uL (0.1-1.30); MONOCYTES % (AUTO) 2.6 % (0.0-11.0); NEUTROPHILS # (AUTO) 6.9 K/uL (1.8-8.9); NEUTROPHILS % (AUTO) 92.2 % (38.5-71.5); PLATELET COUNT (AUTO) 129 K/uL (152-348); RED CELL DISTRIBUTION WIDTH 15.9 % (12.1-16.2); WHITE BLOOD COUNT (AUTO) 7.5 K/uL (3.6-10.2)
[2023-05-19 06:32] LABS: CALCIUM 7.9 mg/dL (8.5-10.1); CARBON DIOXIDE 37 mmol/L (21-32); CHLORIDE 105 mmol/L (98-107); CREATININE 0.6 mg/dL (0.6-1.3); GLUCOSE 180 mg/dL (74-106); MAGNESIUM 2.1 mg/dL (1.8-2.4); PHOSPHOROUS 2.6 mg/dL (2.5-4.9); POTASSIUM 4.1 mmol/L (3.5-5.1); SODIUM SERUM 141 mmol/L (136-145); UREA NITROGEN, BLOOD 25 mg/dL (7-18)
[2023-05-19 06:46] LABS: DIFFERENTIAL COMMENT 1; RED BLOOD CELL COUNT(AUTO) 2.11 MIL/uL (4.06-5.63)
[2023-05-20] VITALS (54 sets, daily range): BP systolic 93–128; BP diastolic 60–84; TEMP 97.4–98.9; O2SAT 84–99
[2023-05-20 05:11] LABS: BASOPHILS % (AUTO) 0.3 % (0.0-2.0); HEMATOCRIT 22.2 % (36.7-47.1); HEMOGLOBIN 7.8 g/dL (12.5-16.3); LYMPHOCYTES # (AUTO) 0.4 K/uL (0.8-4.8); LYMPHOCYTES % (AUTO) 4.1 % (20.5-51.5); MEAN CORPUSCULAR HEMOGLOBIN 37.1 uug (23.8-33.4); MEAN CORPUSCULAR HGB CONC 35 g/dL (32.5-36.3); MEAN CORPUSCULAR VOLUME 105.9 fL (73.0-96.2); MONOCYTES # (AUTO) 0.2 K/uL (0.1-1.30); MONOCYTES % (AUTO) 2.2 % (0.0-11.0); NEUTROPHILS # (AUTO) 8.8 K/uL (1.8-8.9); NEUTROPHILS % (AUTO) 93.4 % (38.5-71.5); PLATELET COUNT (AUTO) 123 K/uL (152-348); RED CELL DISTRIBUTION WIDTH 15.8 % (12.1-16.2); WHITE BLOOD COUNT (AUTO) 9.4 K/uL (3.6-10.2)
[2023-05-20 05:33] LABS: ABG BASE EXCESS 8.9 mmol/L (-2.0-2.0); ABG HCO3 32.9 mmol/L (22.0-26.0); ABG PCO2 43.1 mmHg (35.0-48.0); ABG PO2 109.5 mmHg (75.0-100.0); ABG SITE RIGHT RADIAL; ABG TOTAL HEMOGLOBIN 8.2 G/dL (14.0-18.0); AaDO2 98.3 mmHg; COHb 0.2 % (0.0-3.9); MetHb 0.3 % (0.0-1.5); O2Hb 97.9 % (94.0-97.0); VT, ABG 500 mL
[2023-05-20 06:00] LABS: CALCIUM 7.7 mg/dL (8.5-10.1); CREATININE 0.6 mg/dL (0.6-1.3); MAGNESIUM 2.1 mg/dL (1.8-2.4); PHOSPHOROUS 2.6 mg/dL (2.5-4.9); POTASSIUM 4.4 mmol/L (3.5-5.1)
[2023-05-20 06:03] LABS: DIFFERENTIAL COMMENT 1
[2023-05-20] MEDS: CEFEPIME HCL 1 G in IV DEXTROSE 5% 50 ML IV SCH (21:21)
[2023-05-21] VITALS (78 sets, daily range): BP systolic 101–126; BP diastolic 66–83; TEMP 96.1–98.5; O2SAT 87–99
[2023-05-21 05:12] LABS: BASOPHILS % (AUTO) 0.1 % (0.0-2.0); HEMATOCRIT 21.2 % (36.7-47.1); LYMPHOCYTES # (AUTO) 0.4 K/uL (0.8-4.8); LYMPHOCYTES % (AUTO) 3.7 % (20.5-51.5); MEAN CORPUSCULAR HEMOGLOBIN 36.1 uug (23.8-33.4); MEAN CORPUSCULAR HGB CONC 34 g/dL (32.5-36.3); MEAN CORPUSCULAR VOLUME 106.2 fL (73.0-96.2); MONOCYTES # (AUTO) 0.2 K/uL (0.1-1.30); MONOCYTES % (AUTO) 2.3 % (0.0-11.0); NEUTROPHILS # (AUTO) 9.2 K/uL (1.8-8.9); NEUTROPHILS % (AUTO) 93.9 % (38.5-71.5); PLATELET COUNT (AUTO) 108 K/uL (152-348); RED CELL DISTRIBUTION WIDTH 16.2 % (12.1-16.2); WHITE BLOOD COUNT (AUTO) 9.8 K/uL (3.6-10.2)
[2023-05-21 05:32] LABS: DIFFERENTIAL COMMENT 1; HEMOGLOBIN 7.2 g/dL (12.5-16.3)
[2023-05-21 05:51] LABS: CALCIUM 7.8 mg/dL (8.5-10.1); CARBON DIOXIDE 36 mmol/L (21-32); CHLORIDE 105 mmol/L (98-107); CREATININE 0.5 mg/dL (0.6-1.3); GLUCOSE 154 mg/dL (74-106); PHOSPHOROUS 2.8 mg/dL (2.5-4.9); POTASSIUM 4.4 mmol/L (3.5-5.1); SODIUM SERUM 139 mmol/L (136-145); UREA NITROGEN, BLOOD 19 mg/dL (7-18)
[2023-05-21] MEDS ORDERED: CLINDAMYCIN 900MG/D5W 100ML IVPB **ER PYXIS ONLY IJ ONE (21:44)
[2023-05-21] MEDS: CLINDAMYCIN PHOSPHATE IV 900 MG in IV DEXTROSE 5% 100 ML IV SCH (22:03)
[2023-05-22] VITALS (36 sets, daily range): BP systolic 94–122; BP diastolic 53–77; TEMP 97.8–99; O2SAT 91–100
[2023-05-22] MEDS ORDERED: CLINDAMYCIN 900MG/D5W 100ML IVPB **ER PYXIS ONLY IJ ONE (04:19)
[2023-05-22 05:23] LABS: BASOPHILS # (AUTO) 0.1 K/UL (0.0-0.2); BASOPHILS % (AUTO) 1.7 % (0.0-2.0); EOSINOPHILS # (AUTO) 0.2 K/uL (0.0-0.7); EOSINOPHILS % (AUTO) 2.9 % (0.0-7.0); LYMPHOCYTES # (AUTO) 0.4 K/uL (0.8-4.8); LYMPHOCYTES % (AUTO) 5.6 % (20.5-51.5); MEAN CORPUSCULAR HEMOGLOBIN 36.6 uug (23.8-33.4); MEAN CORPUSCULAR HGB CONC 35 g/dL (32.5-36.3); MONOCYTES # (AUTO) 0.2 K/uL (0.1-1.30); MONOCYTES % (AUTO) 2.1 % (0.0-11.0); NEUTROPHILS # (AUTO) 6.4 K/uL (1.8-8.9); NEUTROPHILS % (AUTO) 87.7 % (38.5-71.5); PLATELET COUNT (AUTO) 98 K/uL (152-348); RED CELL DISTRIBUTION WIDTH 15.9 % (12.1-16.2)
[2023-05-22 05:36] LABS: DIFFERENTIAL COMMENT 1; HEMATOCRIT 20.5 % (36.7-47.1); HEMOGLOBIN 7.1 g/dL (12.5-16.3); RED BLOOD CELL COUNT(AUTO) 1.95 MIL/uL (4.06-5.63)
[2023-05-22 05:38] LABS: WHITE BLOOD COUNT (AUTO) 7.3 K/uL (3.6-10.2)
[2023-05-22 05:39] LABS: CALCIUM 7.8 mg/dL (8.5-10.1); CARBON DIOXIDE 34 mmol/L (21-32); CHLORIDE 106 mmol/L (98-107); CREATININE 0.5 mg/dL (0.6-1.3); GLUCOSE 152 mg/dL (74-106); POTASSIUM 4.5 mmol/L (3.5-5.1); SODIUM SERUM 142 mmol/L (136-145); UREA NITROGEN, BLOOD 20 mg/dL (7-18)
[2023-05-22 06:06] LABS: ANISOCYTOSIS 1+; LYMPHOCYTES % (MANUAL) 5 % (20-40); MONOCYTES % (MANUAL) 1 % (2-10); NEUTROPHILS % (MANUAL) 94 % (42-75); PLATELET ESTIMATE MARKED DECREASED
[2023-05-22 10:59] LABS: ABG BASE EXCESS 8.8 mmol/L (-2.0-2.0); ABG HCO3 33.1 mmol/L (22.0-26.0); ABG PCO2 45.4 mmHg (35.0-48.0); ABG PH 7.481 (7.340-7.440); ABG PO2 90.8 mmHg (75.0-100.0); ABG SITE RIGHT RADIAL; ABG TOTAL HEMOGLOBIN 8.2 G/dL (14.0-18.0); AaDO2 97.4 mmHg; COHb 0.2 % (0.0-3.9); MetHb 0.3 % (0.0-1.5); O2Hb 96.5 % (94.0-97.0); VT, ABG 500 mL
[2023-05-22] MEDS: CLINDAMYCIN PHOSPHATE IV 900 MG in IV DEXTROSE 5% 50 ML IV SCH (13:22)
[2023-05-23] VITALS (51 sets, daily range): BP systolic 87–138; BP diastolic 60–90; TEMP 97–99.6; O2SAT 89–99
[2023-05-23 05:09] LABS: BASOPHILS % (AUTO) 0.5 % (0.0-2.0); HEMATOCRIT 22.3 % (36.7-47.1); HEMOGLOBIN 7.5 g/dL (12.5-16.3); LYMPHOCYTES # (AUTO) 0.3 K/uL (0.8-4.8); LYMPHOCYTES % (AUTO) 3.6 % (20.5-51.5); MEAN CORPUSCULAR HEMOGLOBIN 35.1 uug (23.8-33.4); MEAN CORPUSCULAR HGB CONC 34 g/dL (32.5-36.3); MONOCYTES # (AUTO) 0.5 K/uL (0.1-1.30); NEUTROPHILS # (AUTO) 6.9 K/uL (1.8-8.9); NEUTROPHILS % (AUTO) 89.9 % (38.5-71.5); PLATELET COUNT (AUTO) 127 K/uL (152-348); RED CELL DISTRIBUTION WIDTH 16.2 % (12.1-16.2); WHITE BLOOD COUNT (AUTO) 7.7 K/uL (3.6-10.2)
[2023-05-23 05:19] LABS: CALCIUM 7.9 mg/dL (8.5-10.1); CARBON DIOXIDE 31 mmol/L (21-32); CHLORIDE 103 mmol/L (98-107); CREATININE 0.5 mg/dL (0.6-1.3); GLUCOSE 159 mg/dL (74-106); MAGNESIUM 1.9 mg/dL (1.8-2.4); POTASSIUM 4.3 mmol/L (3.5-5.1); SODIUM SERUM 140 mmol/L (136-145); UREA NITROGEN, BLOOD 19 mg/dL (7-18)
[2023-05-23 05:38] LABS: DIFFERENTIAL COMMENT 1; RED BLOOD CELL COUNT(AUTO) 2.14 MIL/uL (4.06-5.63)
[2023-05-23] MEDS: AMIODARONE HCL 200 MG TABLET PO SCH (08:10)
[2023-05-24] VITALS (44 sets, daily range): BP systolic 78–142; BP diastolic 46–96; TEMP 97–98.8; O2SAT 89–100
[2023-05-24 05:05] LABS: LYMPHOCYTES # (AUTO) 0.4 K/uL (0.8-4.8); MONOCYTES # (AUTO) 0.6 K/uL (0.1-1.30); NEUTROPHILS % (AUTO) 85.6 % (38.5-71.5)
[2023-05-24 05:07] LABS: BASOPHILS % (AUTO) 0.2 % (0.0-2.0); LYMPHOCYTES % (AUTO) 5.7 % (20.5-51.5); MEAN CORPUSCULAR HEMOGLOBIN 35.2 uug (23.8-33.4); MEAN CORPUSCULAR HGB CONC 34 g/dL (32.5-36.3); MEAN CORPUSCULAR VOLUME 104.4 fL (73.0-96.2); MONOCYTES % (AUTO) 8.5 % (0.0-11.0); NEUTROPHILS # (AUTO) 5.9 K/uL (1.8-8.9); PLATELET COUNT (AUTO) 133 K/uL (152-348); RED CELL DISTRIBUTION WIDTH 16.2 % (12.1-16.2)
[2023-05-24 05:34] LABS: CALCIUM 7.6 mg/dL (8.5-10.1); CARBON DIOXIDE 34 mmol/L (21-32); CHLORIDE 104 mmol/L (98-107); CREATININE 0.4 mg/dL (0.6-1.3); GLUCOSE 172 mg/dL (74-106); MAGNESIUM 1.9 mg/dL (1.8-2.4); PHOSPHOROUS 3.3 mg/dL (2.5-4.9); POTASSIUM 4.3 mmol/L (3.5-5.1); SODIUM SERUM 140 mmol/L (136-145); UREA NITROGEN, BLOOD 12 mg/dL (7-18)
[2023-05-24 05:45] LABS: DIFFERENTIAL COMMENT 1; HEMATOCRIT 20.7 % (36.7-47.1); RED BLOOD CELL COUNT(AUTO) 1.98 MIL/uL (4.06-5.63)
[2023-05-24 06:18] LABS: ABG BASE EXCESS 7.1 mmol/L (-2.0-2.0); ABG HCO3 32.1 mmol/L (22.0-26.0); ABG PCO2 47.8 mmHg (35.0-48.0); ABG PH 7.445 (7.340-7.440); ABG PO2 70.4 mmHg (75.0-100.0); ABG SITE RIGHT RADIAL; ABG TOTAL HEMOGLOBIN 9.8 G/dL (14.0-18.0); AaDO2 94.6 mmHg; COHb 0.3 % (0.0-3.9); MetHb 0.3 % (0.0-1.5); O2Hb 93.2 % (94.0-97.0)
[2023-05-24] MEDS ORDERED: DC PROPOFOL ONCE EXTUBATED XX PRN (08:40)
[2023-05-24 12:42] LABS: ABG BASE EXCESS 6.9 mmol/L (-2.0-2.0); ABG HCO3 33.1 mmol/L (22.0-26.0); ABG PCO2 57.9 mmHg (35.0-48.0); ABG PH 7.375 (7.340-7.440); ABG PO2 71.9 mmHg (75.0-100.0); ABG SITE LEFT BRACHIAL; ABG TOTAL HEMOGLOBIN 8.4 G/dL (14.0-18.0); AaDO2 93.7 mmHg; COHb 0.3 % (0.0-3.9); MetHb 0.2 % (0.0-1.5); O2Hb 92.4 % (94.0-97.0)
[2023-05-24] MEDS: PROPOFOL 100 ML IV PRN (13:05)
[2023-05-24] MEDS: DEXAMETHASONE SOD PHOSPHATE 10 MG INJ IV ONE (13:20)
[2023-05-24 14:29] LABS: ABG BASE EXCESS 6.6 mmol/L (-2.0-2.0); ABG HCO3 31.1 mmol/L (22.0-26.0); ABG PCO2 45.2 mmHg (35.0-48.0); ABG PH 7.456 (7.340-7.440); ABG PO2 141.4 mmHg (75.0-100.0); ABG SITE LEFT BRACHIAL; ABG TOTAL HEMOGLOBIN 7.8 G/dL (14.0-18.0); AaDO2 98.9 mmHg; COHb 0.6 % (0.0-3.9); MetHb 0.3 % (0.0-1.5); O2Hb 98.3 % (94.0-97.0); VT, ABG 500 mL
[2023-05-24 15:31] LABS: LYMPHOCYTES # (AUTO) 0.2 K/uL (0.8-4.8); MEAN CORPUSCULAR HGB CONC 33 g/dL (32.5-36.3); MONOCYTES # (AUTO) 0.7 K/uL (0.1-1.30); PLATELET COUNT (AUTO) 149 K/uL (152-348)
[2023-05-24 15:32] LABS: BASOPHILS % (AUTO) 0.3 % (0.0-2.0); LYMPHOCYTES % (AUTO) 3.1 % (20.5-51.5); MEAN CORPUSCULAR HEMOGLOBIN 34.8 uug (23.8-33.4); MEAN CORPUSCULAR VOLUME 104.9 fL (73.0-96.2); MONOCYTES % (AUTO) 10.1 % (0.0-11.0); NEUTROPHILS # (AUTO) 5.8 K/uL (1.8-8.9); NEUTROPHILS % (AUTO) 86.5 % (38.5-71.5); RED CELL DISTRIBUTION WIDTH 16.2 % (12.1-16.2); WHITE BLOOD COUNT (AUTO) 6.7 K/uL (3.6-10.2)
[2023-05-24 16:01] LABS: DIFFERENTIAL COMMENT 1; HEMATOCRIT 20.9 % (36.7-47.1); RED BLOOD CELL COUNT(AUTO) 1.99 MIL/uL (4.06-5.63)
[2023-05-24 16:27] LABS: HEMOGLOBIN 6.9 g/dL (12.5-16.3)
[2023-05-24 16:53] LABS: BAND % (MANUAL) 24 % (0-10); LYMPHOCYTES % (MANUAL) 6 % (20-40); MONOCYTES % (MANUAL) 7 % (2-10); NEUTROPHILS % (MANUAL) 60 % (42-75)
[2023-05-24 16:54] LABS: ANISOCYTOSIS 1+; METAMYELOCYTES % 3 % (0-1); PLATELET ESTIMATE DECREASED
[2023-05-25] VITALS (53 sets, daily range): BP systolic 75–125; BP diastolic 45–84; TEMP 97.3–99; O2SAT 90–100
[2023-05-25 05:03] LABS: BASOPHILS % (AUTO) 0.5 % (0.0-2.0); HEMATOCRIT 22.3 % (36.7-47.1); HEMOGLOBIN 7.8 g/dL (12.5-16.3); LYMPHOCYTES # (AUTO) 0.4 K/uL (0.8-4.8); LYMPHOCYTES % (AUTO) 5.3 % (20.5-51.5); MEAN CORPUSCULAR HEMOGLOBIN 35.5 uug (23.8-33.4); MEAN CORPUSCULAR HGB CONC 35 g/dL (32.5-36.3); MEAN CORPUSCULAR VOLUME 100.7 fL (73.0-96.2); MONOCYTES # (AUTO) 0.5 K/uL (0.1-1.30); MONOCYTES % (AUTO) 6.9 % (0.0-11.0); NEUTROPHILS # (AUTO) 6.7 K/uL (1.8-8.9); NEUTROPHILS % (AUTO) 87.3 % (38.5-71.5); PLATELET COUNT (AUTO) 143 K/uL (152-348); RED CELL DISTRIBUTION WIDTH 17.8 % (12.1-16.2); WHITE BLOOD COUNT (AUTO) 7.7 K/uL (3.6-10.2)
[2023-05-25 05:30] LABS: CALCIUM 7.1 mg/dL (8.5-10.1); CARBON DIOXIDE 32 mmol/L (21-32); CHLORIDE 106 mmol/L (98-107); CREATININE 0.3 mg/dL (0.6-1.3); GLUCOSE 123 mg/dL (74-106); MAGNESIUM 1.6 mg/dL (1.8-2.4); PHOSPHOROUS 2.4 mg/dL (2.5-4.9); POTASSIUM 3.9 mmol/L (3.5-5.1); SODIUM SERUM 141 mmol/L (136-145); UREA NITROGEN, BLOOD 12 mg/dL (7-18)
[2023-05-25 05:38] LABS: DIFFERENTIAL COMMENT 1; RED BLOOD CELL COUNT(AUTO) 2.21 MIL/uL (4.06-5.63)
[2023-05-25 05:56] LABS: ABG BASE EXCESS 6.9 mmol/L (-2.0-2.0); ABG HCO3 30.2 mmol/L (22.0-26.0); ABG PCO2 38.2 mmHg (35.0-48.0); ABG PH 7.516 (7.340-7.440); ABG PO2 63.7 mmHg (75.0-100.0); ABG SITE RIGHT RADIAL; ABG TOTAL HEMOGLOBIN 10.4 G/dL (14.0-18.0); AaDO2 94.3 mmHg; COHb 0.5 % (0.0-3.9); MetHb 0.2 % (0.0-1.5); O2Hb 92.8 % (94.0-97.0); VT, ABG 500 mL
[2023-05-25] MEDS: MORPHINE SULFATE 4 MG/1 ML DISP.SYRIN IM PRN (15:14)
[2023-05-25] MEDS: NEUTRA PHOS PACKET GT ONE (15:22)
[2023-05-25] MEDS: MAGNESIUM SULFATE/D5W 100 ML IV SCH (15:22)
[2023-05-25] MEDS: PROPOFOL 100 ML IV PRN (15:32)
[2023-05-26] VITALS (74 sets, daily range): BP systolic 88–134; BP diastolic 46–84; TEMP 97.3–99.4; O2SAT 78–99
[2023-05-26 05:21] LABS: BASOPHILS % (AUTO) 0.2 % (0.0-2.0); HEMATOCRIT 23.6 % (36.7-47.1); HEMOGLOBIN 7.8 g/dL (12.5-16.3); LYMPHOCYTES # (AUTO) 0.4 K/uL (0.8-4.8); LYMPHOCYTES % (AUTO) 3.6 % (20.5-51.5); MEAN CORPUSCULAR HEMOGLOBIN 33.5 uug (23.8-33.4); MEAN CORPUSCULAR HGB CONC 33 g/dL (32.5-36.3); MEAN CORPUSCULAR VOLUME 101.4 fL (73.0-96.2); MONOCYTES # (AUTO) 0.7 K/uL (0.1-1.30); NEUTROPHILS # (AUTO) 10.9 K/uL (1.8-8.9); NEUTROPHILS % (AUTO) 90.2 % (38.5-71.5); PLATELET COUNT (AUTO) 222 K/uL (152-348); RED CELL DISTRIBUTION WIDTH 17.9 % (12.1-16.2); WHITE BLOOD COUNT (AUTO) 12.1 K/uL (3.6-10.2)
[2023-05-26 05:26] LABS: ABG BASE EXCESS 7.4 mmol/L (-2.0-2.0); ABG HCO3 30.9 mmol/L (22.0-26.0); ABG PCO2 39.1 mmHg (35.0-48.0); ABG PH 7.516 (7.340-7.440); ABG PO2 70.2 mmHg (75.0-100.0); ABG SITE RIGHT RADIAL; ABG TOTAL HEMOGLOBIN 8.6 G/dL (14.0-18.0); AaDO2 95.6 mmHg; COHb 0.3 % (0.0-3.9); MetHb 0.1 % (0.0-1.5); O2Hb 94.6 % (94.0-97.0); VT, ABG 500 mL
[2023-05-26 05:36] LABS: DIFFERENTIAL COMMENT 1; RED BLOOD CELL COUNT(AUTO) 2.32 MIL/uL (4.06-5.63)
[2023-05-26 05:45] LABS: CARBON DIOXIDE 33 mmol/L (21-32); CHLORIDE 105 mmol/L (98-107); CREATININE 0.4 mg/dL (0.6-1.3); GLUCOSE 186 mg/dL (74-106); MAGNESIUM 2.1 mg/dL (1.8-2.4); POTASSIUM 4.2 mmol/L (3.5-5.1); SODIUM SERUM 141 mmol/L (136-145); UREA NITROGEN, BLOOD 15 mg/dL (7-18)
[2023-05-26 05:48] LABS: CALCIUM 7.6 mg/dL (8.5-10.1)
[2023-05-26] MEDS: PRECEDEX 400 MCG/100 ML BOTTLE 100 ML IV PRN (12:50)
[2023-05-26 14:41] LABS: LACTIC ACID 2.1 mmol/L (0.4-2.0)
[2023-05-26 16:22] LABS: BILIRUBIN,DIRECT 0.1 mg/dL (0.0-0.2); BILIRUBIN,TOTAL 0.3 mg/dL (0.2-1.0)
[2023-05-26] MEDS: ACETAMINOPHEN 650 MG/20.3 ML LIQUID UDC ONE (17:42)
[2023-05-26 22:59] LABS: *BILIRUBIN,URIN NEGATIVE (NEGATIVE); *CLARITY,URINE CLEAR (CLEAR); *COLOR,URINE YELLOW (YELLOW); *KETONES,URINE NEGATIVE (NEGATIVE); *UROBILINOGEN,URINE 0.2 E.U./dl (NORMAL); LEUKOCYTE ESTERASE ,URINE NEGATIVE (NEGATIVE); NITRITE, URINE NEGATIVE (NEGATIVE); PH,URINE 7.5 (5.0-8.0); UGLUCOSE NEGATIVE (NEGATIVE)
[2023-05-26 23:01] LABS: *BLOOD, URINE NEGATIVE (NEGATIVE)
[2023-05-26 23:02] LABS: *PROTEIN,URINE NEGATIVE (NEGATIVE)
[2023-05-27] VITALS (50 sets, daily range): BP systolic 91–146; BP diastolic 50–104; TEMP 97.6–99.2; O2SAT 88–98
[2023-05-27 05:13] LABS: BASOPHILS % (AUTO) 0.4 % (0.0-2.0); LYMPHOCYTES # (AUTO) 0.4 K/uL (0.8-4.8); MEAN CORPUSCULAR HEMOGLOBIN 33.4 uug (23.8-33.4); MEAN CORPUSCULAR HGB CONC 32 g/dL (32.5-36.3); MEAN CORPUSCULAR VOLUME 103.3 fL (73.0-96.2); MONOCYTES # (AUTO) 0.8 K/uL (0.1-1.30); MONOCYTES % (AUTO) 7.1 % (0.0-11.0); NEUTROPHILS # (AUTO) 9.7 K/uL (1.8-8.9); NEUTROPHILS % (AUTO) 88.5 % (38.5-71.5); PLATELET COUNT (AUTO) 171 K/uL (152-348); RED CELL DISTRIBUTION WIDTH 17.5 % (12.1-16.2); WHITE BLOOD COUNT (AUTO) 10.9 K/uL (3.6-10.2)
[2023-05-27 05:37] LABS: DIFFERENTIAL COMMENT 1; HEMATOCRIT 20.9 % (36.7-47.1); HEMOGLOBIN 6.8 g/dL (12.5-16.3); RED BLOOD CELL COUNT(AUTO) 2.03 MIL/uL (4.06-5.63)
[2023-05-27 05:42] LABS: CALCIUM 7.1 mg/dL (8.5-10.1); CARBON DIOXIDE 27 mmol/L (21-32); CHLORIDE 106 mmol/L (98-107); CREATININE 0.4 mg/dL (0.6-1.3); GLUCOSE 237 mg/dL (74-106); MAGNESIUM 1.6 mg/dL (1.8-2.4); PHOSPHOROUS 2.3 mg/dL (2.5-4.9); POTASSIUM 3.7 mmol/L (3.5-5.1); SODIUM SERUM 140 mmol/L (136-145); UREA NITROGEN, BLOOD 14 mg/dL (7-18)
[2023-05-27] MEDS: AMIODARONE HCL 200 MG TABLET PO SCH (10:15)
[2023-05-27] MEDS: MAGNESIUM SULFATE/D5W 100 ML IV SCH (10:18)
[2023-05-27] MEDS: POTASSIUM PHOSPHATE MM 15 MMOL in IV NORMAL SALINE 250 ML IV ONE (10:19)
[2023-05-27] MEDS: ACETAMINOPHEN 325 MG TABLET PO ONE (21:45)
[2023-05-27] MEDS: diphenhydrAMINE 50 MG/1 ML VIAL IV ONE (21:45)
[2023-05-27 22:16] LABS: BASOPHILS % (AUTO) 0.1 % (0.0-2.0); HEMATOCRIT 24.1 % (36.7-47.1); HEMOGLOBIN 7.9 g/dL (12.5-16.3); LYMPHOCYTES # (AUTO) 0.7 K/uL (0.8-4.8); LYMPHOCYTES % (AUTO) 4.8 % (20.5-51.5); MEAN CORPUSCULAR HEMOGLOBIN 33.4 uug (23.8-33.4); MEAN CORPUSCULAR HGB CONC 33 g/dL (32.5-36.3); MEAN CORPUSCULAR VOLUME 102.2 fL (73.0-96.2); MONOCYTES # (AUTO) 1.3 K/uL (0.1-1.30); MONOCYTES % (AUTO) 9.5 % (0.0-11.0); NEUTROPHILS # (AUTO) 11.5 K/uL (1.8-8.9); NEUTROPHILS % (AUTO) 85.6 % (38.5-71.5); PLATELET COUNT (AUTO) 201 K/uL (152-348); RED CELL DISTRIBUTION WIDTH 17.8 % (12.1-16.2); WHITE BLOOD COUNT (AUTO) 13.5 K/uL (3.6-10.2)
[2023-05-27] MEDS: DOXYCYCLINE HYCLATE 100 MG TABLET PO SCH (22:19)
[2023-05-27 22:22] LABS: DIFFERENTIAL COMMENT 1; RED BLOOD CELL COUNT(AUTO) 2.36 MIL/uL (4.06-5.63)
[2023-05-28] VITALS (65 sets, daily range): BP systolic 70–159; BP diastolic 41–96; TEMP 97.9–99.8; O2SAT 86–100
[2023-05-28 05:44] LABS: BASOPHILS % (AUTO) 0.2 % (0.0-2.0); HEMATOCRIT 21.7 % (36.7-47.1); LYMPHOCYTES # (AUTO) 0.4 K/uL (0.8-4.8); LYMPHOCYTES % (AUTO) 2.9 % (20.5-51.5); MEAN CORPUSCULAR HEMOGLOBIN 33.7 uug (23.8-33.4); MEAN CORPUSCULAR HGB CONC 33 g/dL (32.5-36.3); MEAN CORPUSCULAR VOLUME 101.5 fL (73.0-96.2); MONOCYTES # (AUTO) 0.3 K/uL (0.1-1.30); MONOCYTES % (AUTO) 2.8 % (0.0-11.0); NEUTROPHILS # (AUTO) 11.7 K/uL (1.8-8.9); NEUTROPHILS % (AUTO) 94.1 % (38.5-71.5); PLATELET COUNT (AUTO) 208 K/uL (152-348); RED CELL DISTRIBUTION WIDTH 17.1 % (12.1-16.2); WHITE BLOOD COUNT (AUTO) 12.4 K/uL (3.6-10.2)
[2023-05-28 05:45] LABS: DIFFERENTIAL COMMENT 1; HEMOGLOBIN 7.2 g/dL (12.5-16.3); RED BLOOD CELL COUNT(AUTO) 2.14 MIL/uL (4.06-5.63)
[2023-05-28 06:09] LABS: CALCIUM 7.6 mg/dL (8.5-10.1); CARBON DIOXIDE 32 mmol/L (21-32); CHLORIDE 104 mmol/L (98-107); CREATININE 0.5 mg/dL (0.6-1.3); GLUCOSE 179 mg/dL (74-106); MAGNESIUM 1.9 mg/dL (1.8-2.4); PHOSPHOROUS 2.5 mg/dL (2.5-4.9); POTASSIUM 3.9 mmol/L (3.5-5.1); SODIUM SERUM 138 mmol/L (136-145); UREA NITROGEN, BLOOD 14 mg/dL (7-18)
[2023-05-28 06:20] LABS: ABG BASE EXCESS 4.5 mmol/L (-2.0-2.0); ABG HCO3 28.8 mmol/L (22.0-26.0); ABG PCO2 41.8 mmHg (35.0-48.0); ABG PH 7.456 (7.340-7.440); ABG PO2 74.8 mmHg (75.0-100.0); ABG SITE RIGHT RADIAL; ABG TOTAL HEMOGLOBIN 8.4 G/dL (14.0-18.0); AaDO2 95.6 mmHg; COHb 0.3 % (0.0-3.9); MetHb 0.4 % (0.0-1.5); O2Hb 94.3 % (94.0-97.0); VT, ABG 500 mL
[2023-05-28] MEDS ORDERED: PROPOFOL 100 ML IV PRN (10:45)
[2023-05-28] MEDS: IV NS 1000 ML 500 ML IV ONE (11:47)
[2023-05-28] MEDS: PROPOFOL 100 ML IV PRN (11:58)
[2023-05-28] MEDS: PHENYLEPHRINE IV 50 MG in IV NORMAL SALINE 245 ML IV PRN (12:38)
[2023-05-28 13:27] LABS: ABG BASE EXCESS 4.7 mmol/L (-2.0-2.0); ABG HCO3 28.8 mmol/L (22.0-26.0); ABG PCO2 40.9 mmHg (35.0-48.0); ABG PH 7.466 (7.340-7.440); ABG PO2 59.6 mmHg (75.0-100.0); ABG SITE RIGHT RADIAL; ABG TOTAL HEMOGLOBIN 8.3 G/dL (14.0-18.0); AaDO2 92.2 mmHg; COHb 0.1 % (0.0-3.9); MetHb 0.3 % (0.0-1.5); O2Hb 91.1 % (94.0-97.0); VT, ABG 470 mL
[2023-05-28] MEDS ORDERED: ETOMIDATE 20 MG/10 ML VIAL ONE (17:30)
[2023-05-28] MEDS ORDERED: MEROPENEM 500 MG in IV NORMAL SALINE 50 ML IV SCH (18:00)
[2023-05-28] MEDS: MIDAZOLAM HCL 50 MG in IV NORMAL SALINE 40 ML IV PRN (20:22)
[2023-05-28] MEDS: MEROPENEM 1 G in IV NORMAL SALINE 100 ML IV SCH (20:25)
[2023-05-28] MEDS: FUROSEMIDE 40 MG/4 ML VIAL ONE (23:04)
[2023-05-28] MEDS: FUROSEMIDE 40 MG/4 ML VIAL IV ONE (23:04)
[2023-05-29] VITALS (29 sets, daily range): BP systolic 69–140; BP diastolic 50–79; TEMP 97.8–98; O2SAT 46–99
[2023-05-29 05:17] LABS: BASOPHILS % (AUTO) 0.1 % (0.0-2.0); HEMATOCRIT 23.6 % (36.7-47.1); HEMOGLOBIN 7.6 g/dL (12.5-16.3); LYMPHOCYTES # (AUTO) 1.3 K/uL (0.8-4.8); LYMPHOCYTES % (AUTO) 5.7 % (20.5-51.5); MEAN CORPUSCULAR HEMOGLOBIN 33.1 uug (23.8-33.4); MEAN CORPUSCULAR HGB CONC 32 g/dL (32.5-36.3); MEAN CORPUSCULAR VOLUME 102.5 fL (73.0-96.2); MONOCYTES % (AUTO) 4.6 % (0.0-11.0); NEUTROPHILS # (AUTO) 19.9 K/uL (1.8-8.9); NEUTROPHILS % (AUTO) 89.6 % (38.5-71.5); PLATELET COUNT (AUTO) 224 K/uL (152-348); RED CELL DISTRIBUTION WIDTH 17.4 % (12.1-16.2); WHITE BLOOD COUNT (AUTO) 22.2 K/uL (3.6-10.2)
[2023-05-29 05:33] LABS: CALCIUM 7.9 mg/dL (8.5-10.1); CARBON DIOXIDE 34 mmol/L (21-32); CHLORIDE 109 mmol/L (98-107); CREATININE 0.5 mg/dL (0.6-1.3); GLUCOSE 124 mg/dL (74-106); PHOSPHOROUS 2.7 mg/dL (2.5-4.9); POTASSIUM 3.4 mmol/L (3.5-5.1); SODIUM SERUM 145 mmol/L (136-145); UREA NITROGEN, BLOOD 15 mg/dL (7-18)
[2023-05-29 06:24] LABS: DIFFERENTIAL COMMENT 1; RED BLOOD CELL COUNT(AUTO) 2.31 MIL/uL (4.06-5.63)
[2023-05-29 06:32] LABS: ABG BASE EXCESS 5.4 mmol/L (-2.0-2.0); ABG HCO3 30.3 mmol/L (22.0-26.0); ABG PCO2 46.1 mmHg (35.0-48.0); ABG PH 7.435 (7.340-7.440); ABG PO2 48.6 mmHg (75.0-100.0); ABG SITE LEFT RADIAL; AaDO2 85.2 mmHg; MetHb 0.4 % (0.0-1.5); VT, ABG 470 mL
[2023-05-29] MEDS ORDERED: PHENYLEPHRINE IV 100 MG in IV NORMAL SALINE 240 ML IV PRN (08:00)
[2023-05-29] MEDS ORDERED: LORAZEPAM 2 MG/1 ML VIAL IV PRN (09:00)
[2023-05-29] MEDS: HYDROMORPHONE 2 MG/1 ML DISP.SYRIN IV ONE (09:14)
[2023-05-29] MEDS: LORAZEPAM 2 MG/1 ML VIAL IV ONE (09:16)
[2023-05-29] MEDS: HYDROMORPHONE 2 MG/1 ML DISP.SYRIN IV PRN (09:35)
== END 2023-05-29 09:45 | DRG 917 ==
LOC: ER 11:15 → TELE3 17:20 → UNDOADMIN 17:22 → TELE3 17:22 → CCU 05-12 18:18
PROVIDERS: ADMIT Nurse Practitioner Acute Care; ATTEND Nurse Practitioner Acute Care
PROC: 5A09357 Assistance with Respiratory Ventilation, Less than 24 Consecutive Hours, Continuous Positive Airway Pressure (ICD-10-PCS; principal; 2023-05-12)
PROC: 5A1955Z Respiratory Ventilation, Greater than 96 Consecutive Hours (ICD-10-PCS; 2023-05-15)
PROC: 0BH17EZ Insertion of Endotracheal Airway into Trachea, Via Natural or Artificial Opening (ICD-10-PCS; 2023-05-15)
PROC: 02HV33Z Insertion of Infusion Device into Superior Vena Cava, Percutaneous Approach (ICD-10-PCS; 2023-05-16)
PROC: 5A1945Z Respiratory Ventilation, 24-96 Consecutive Hours (ICD-10-PCS; 2023-05-24)
PROC: 0BH17EZ Insertion of Endotracheal Airway into Trachea, Via Natural or Artificial Opening (ICD-10-PCS; 2023-05-24)
DX: T42.4X2A Poisoning by benzodiazepines, intentional self-harm, initial encounter (principal); A41.9 Sepsis, unspecified organism; G92.8 Other toxic encephalopathy; J69.0 Pneumonitis due to inhalation of food and vomit; J15.212 Pneumonia due to Methicillin resistant Staphylococcus aureus; R65.21 Severe sepsis with septic shock; J96.22 Acute and chronic respiratory failure with hypercapnia; J96.21 Acute and chronic respiratory failure with hypoxia; G61.0 Guillain-Barre syndrome; E44.1 Mild protein-calorie malnutrition; C77.9 Secondary and unspecified malignant neoplasm of lymph node, unspecified; J44.1 Chronic obstructive pulmonary disease with (acute) exacerbation; I47.19 Other supraventricular tachycardia; J90 Pleural effusion, not elsewhere classified; N17.9 Acute kidney failure, unspecified; E87.4 Mixed disorder of acid-base balance; D68.59 Other primary thrombophilia; T40.2X2A Poisoning by other opioids, intentional self-harm, initial encounter; Y92.230 Patient room in hospital as the place of occurrence of the external cause; Z51.5 Encounter for palliative care; Y92.89 Other specified places as the place of occurrence of the external cause; G89.4 Chronic pain syndrome; I48.0 Paroxysmal atrial fibrillation; J44.9 Chronic obstructive pulmonary disease, unspecified; L03.011 Cellulitis of right finger; D53.9 Nutritional anemia, unspecified; C61 Malignant neoplasm of prostate; K80.20 Calculus of gallbladder without cholecystitis without obstruction; Z89.512 Acquired absence of left leg below knee; S60.512A Abrasion of left hand, initial encounter; X58.XXXA Exposure to other specified factors, initial encounter; Z91.199 Patient's noncompliance with other medical treatment and regimen due to unspecified reason; Z87.442 Personal history of urinary calculi; Z86.718 Personal history of other venous thrombosis and embolism; Z85.828 Personal history of other malignant neoplasm of skin; Z79.899 Other long term (current) drug therapy; Z79.51 Long term (current) use of inhaled steroids; E78.5 Hyperlipidemia, unspecified; F10.21 Alcohol dependence, in remission; F43.21 Adjustment disorder with depressed mood; F17.210 Nicotine dependence, cigarettes, uncomplicated; I71.40 Abdominal aortic aneurysm, without rupture, unspecified; Z92.21 Personal history of antineoplastic chemotherapy; N28.1 Cyst of kidney, acquired; E87.6 Hypokalemia; E83.42 Hypomagnesemia; E88.09 Other disorders of plasma-protein metabolism, not elsewhere classified; E83.39 Other disorders of phosphorus metabolism; D70.9 Neutropenia, unspecified; E11.65 Type 2 diabetes mellitus with hyperglycemia; M15.9 Polyosteoarthritis, unspecified; Z87.81 Personal history of (healed) traumatic fracture; Z87.19 Personal history of other diseases of the digestive system; I51.7 Cardiomegaly
CPT/HCPCS: 36415; 36569; 36600; 70030-TC; 70450; 71045; 71275; 73130; 82803; 83605; 83735; 83970; 84100; 84155; 84165; 84300; 84443; 84484; 85025; 85730; 86850; 86900; 86901; 86920; 87040; 87077; 93005; 94002; 94003; 94640; 94660; 94664; 94760; 99082-TC; A4606; A4663; A6209; A6213; C1758; G0378; G0480; J0282; J0330; J0692; J1100; J1170; J1650; J1940; J2060; J2185; J2250; J2270; J2310; J2543; J2920; J3370; J3475; J3480; J3490; J3590; J7040; J7050; J7512; J7614; P9016; Q9967